=== PATIENT | female | born 1930 | race Caucasian/White ===

== ENCOUNTER 2016-07-02 10:09 | Inpatient (IN) ==
[2016-07-02] MEDS ORDERED: ALBUTEROL NEB INH ONE (11:11)
[2016-07-02 11:56] LABS: EOS# 0.01 X1000 (0.0-0.7); HEMOGLOBIN 12.1 g/dL (12.0-16.0); IMM GRAN% 0.5 % (0.0-0.5); LYMPH# 0.84 X1000 (1.2-3.4); MANUAL DIFF NEEDED? YES; MCH 30.7 PG (27-31); MCHC 34.6 g/dL (33-37); MCV 88.8 FL (81-99); MONO% 9.1 % (1.7-9.3); MPV 8.7 FL (7.4-10.4); NEUT% 86.4 % (42.2-75.2); PLT 535 X1000 (130-400); RBC 3.94 XMIL (4.2-5.4)
[2016-07-02 12:10] LABS: BANDS 4 % (0-1); LYMPHS 2 % (21-51); MONO 8 % (1-9)
[2016-07-02 12:11] LABS: LARGE PLATELETS 1+
[2016-07-02 12:26] LABS: ALBUMIN 3.2 g/dL (3.5-5.0); CALCIUM 8.6 mg/dL (8.8-10.2); POTASSIUM 3.7 mmol/L (3.5-5.1); TOTAL BILIRUBIN 0.68 mg/dL (0.20-1.00); TOTAL PROTEIN 6.4 g/dL (6.3-8.3)
[2016-07-02] MEDS: NS 1,000 ML IV SCH (12:30)
--- NOTE | 2016-07-02 13:30 | Diag Imaging Result Document ---
PROCEDURE NAME: CHEST-2 VIEWS - 07/02/2016 PA AND LATERAL RADIOGRAPH OF THE CHEST: COMPARISON: 06/19/2016. FINDINGS: There is focal ground-glass opacity in the left lower lobe at the base suggesting atelectasis and/or infiltrate. There may also be a small effusion. The right lung is clear. Cardiac silhouette and central vasculature are unremarkable. IMPRESSION: Development of a vague infiltrate and/or atelectasis at the left lung base and a possible small effusion. Follow-up radiograph is recommended.
[2016-07-02] MEDS: LEVAQUIN 500 MG/D5W 500 MG/100 ML IVPB IV SCH (17:16)
[2016-07-02] MEDS: LOVENOX SUBQ SCH (21:38)
[2016-07-02] MEDS: ROZEREM PO SCH (21:39)
[2016-07-02] MEDS: ROBITUSSIN-DM PO PRN (22:59)
[2016-07-03] MEDS: NS 1,000 ML IV SCH ×2 (01:10→11:54)
[2016-07-03] MEDS: ROBITUSSIN-DM PO PRN ×3 (01:30→18:31)
[2016-07-03 01:56] LABS: URINE MICRO REVIEW NEEDED? NO; URINE SOURCE CLEAN CATCH
[2016-07-03 03:02] LABS: BILIRUBIN URINE NEGATIVE (NEGATIVE); BLOOD URINE NEGATIVE (NEGATIVE); COLOR YELLOW; GLUCOSE URINE NEGATIVE (NEGATIVE); LEUKOCYTES URINE MODERATE (NEGATIVE); NITRITE URINE NEGATIVE (NEGATIVE); PH URINE 6.5; PROTEIN URINE TRACE mg/dL (NEGATIVE); SP GRAVITY URINE 1.014; TURBIDITY URINE CLEAR (CLEAR); UR EPITHELIAL CELLS <10 /HPF (<10); URINE BACTERIA NEGATIVE /HPF; URINE CULTURE NEEDED? YES; URINE RBC <10 /HPF (<10); URINE WBC <10 /HPF (<10); UROBILINOGEN URINE NORMAL (NORMAL)
[2016-07-03] MEDS ORDERED: LASIX IV ONE (08:31)
[2016-07-03] MEDS: TENORMIN PO SCH (09:25)
[2016-07-03] MEDS: ASPIRIN EC PO SCH (09:25)
[2016-07-03] MEDS: ALBUTEROL NEB INH SCH ×3 (11:37→20:50)
[2016-07-03] MEDS: LEVAQUIN 500 MG/D5W 500 MG/100 ML IVPB IV SCH (16:04)
[2016-07-03] MEDS: LOVENOX SUBQ SCH (21:06)
[2016-07-03] MEDS: ROZEREM PO SCH (21:06)
[2016-07-04 05:43] LABS: MANUAL DIFF NEEDED? NO
[2016-07-04 05:50] LABS: BASO% 0.1 % (0.0-0.8); EOS# 0.09 X1000 (0.0-0.7); EOS% 0.5 % (0.0-10.0); HEMATOCRIT 28.9 % (37.0-47.0); IMM GRAN# 0.08 X1000 (0.0-0.04); IMM GRAN% 0.5 % (0.0-0.5); LYMPH# 1.46 X1000 (1.2-3.4); LYMPH% 8.9 % (20.5-51.1); MCH 31.1 PG (27-31); MCHC 34.6 g/dL (33-37); MCV 89.8 FL (81-99); MPV 8.5 FL (7.4-10.4); PLT 426 X1000 (130-400); RBC 3.22 XMIL (4.2-5.4)
[2016-07-04 06:04] LABS: AGAP 11; BUN 14 mg/dL (8-22); CHLORIDE 95 mmol/L (98-107); COSMO 263; POTASSIUM 3.5 mmol/L (3.5-5.1); SODIUM 131 mmol/L (136-145); TCO2 25 mmol/L (25-35)
[2016-07-04] MEDS: ASPIRIN EC PO SCH (09:24)
[2016-07-04] MEDS: TENORMIN PO SCH (09:24)
[2016-07-04] MEDS: TUSSIONEX LIQUID PO SCH ×2 (09:24→20:09)
[2016-07-04] MEDS: ALBUTEROL NEB INH SCH ×3 (09:53→19:42)
[2016-07-04] MEDS: TESSALON PO PRN ×2 (12:18→19:07)
[2016-07-04] MEDS: LEVAQUIN PO SCH (17:07)
[2016-07-04] MEDS: LOVENOX SUBQ SCH (20:09)
[2016-07-04] MEDS: ROZEREM PO SCH (20:09)
[2016-07-05] MEDS: ALBUTEROL NEB INH SCH ×2 (07:53→15:33)
[2016-07-05] MEDS: ASPIRIN EC PO SCH (10:30)
[2016-07-05] MEDS: TENORMIN PO SCH (10:30)
[2016-07-05] MEDS: TUSSIONEX LIQUID PO SCH ×2 (10:30→23:34)
[2016-07-05] MEDS ORDERED: MILK OF MAGNESIA PO ONE (10:31)
[2016-07-05] MEDS: LEVAQUIN PO SCH (16:26)
[2016-07-05] MEDS ORDERED: ULTRAM PO PRN (20:50)
[2016-07-05] MEDS ORDERED: TYLENOL PO PRN (20:51)
[2016-07-05] MEDS: TESSALON PO PRN (21:59)
[2016-07-05] MEDS: ROZEREM PO SCH (21:59)
[2016-07-05] MEDS: LOVENOX SUBQ SCH (22:01)
[2016-07-06] MEDS ORDERED: TYLENOL PO PRN (04:45)
[2016-07-06] MEDS ORDERED: ULTRAM PO PRN (04:46)
[2016-07-06 06:20] LABS: MANUAL DIFF NEEDED? NO
[2016-07-06 06:52] LABS: CALCIUM 8.7 mg/dL (8.8-10.2); POTASSIUM 4.2 mmol/L (3.5-5.1)
[2016-07-06 06:53] LABS: BASO% 0.3 % (0.0-0.8); EOS# 0.09 X1000 (0.0-0.7); EOS% 0.8 % (0.0-10.0); HEMATOCRIT 31.4 % (37.0-47.0); HEMOGLOBIN 10.8 g/dL (12.0-16.0); IMM GRAN# 0.15 X1000 (0.0-0.04); IMM GRAN% 1.3 % (0.0-0.5); LYMPH# 1.47 X1000 (1.2-3.4); LYMPH% 12.4 % (20.5-51.1); MCH 30.6 PG (27-31); MCHC 34.4 g/dL (33-37); MONO# 1.76 X1000 (0.11-0.59); MONO% 14.9 % (1.7-9.3); MPV 8.7 FL (7.4-10.4); NEUT% 70.3 % (42.2-75.2); PLT 463 X1000 (130-400); RBC 3.53 XMIL (4.2-5.4)
[2016-07-06] MEDS ORDERED: TUSSIONEX LIQUID PO PRN (09:59)
[2016-07-06] MEDS: ASPIRIN EC PO SCH (10:47)
[2016-07-06] MEDS: TENORMIN PO SCH (10:47)
[2016-07-06] MEDS: TESSALON PO PRN ×2 (10:50→21:01)
--- NOTE | 2016-07-06 11:08 | Diag Imaging Result Document ---
PROCEDURE NAME: CHEST-2 VIEWS - 07/06/2016 SEATED AP AND LATERAL RADIOGRAPH OF THE CHEST: COMPARISON: 07/02/2016. FINDINGS: The small left pleural effusion seen on the previous study has increased in size. It is still fairly small, however. Adjacent atelectasis and/or infiltrate at the left lung base appears more pronounced. Cardiac silhouette is stable. IMPRESSION: Increasing small effusion with adjacent atelectasis and/or infiltrate at the left lung base as described.
--- NOTE | 2016-07-06 11:12 | PROGRESS NOTE ---
DATE: 07/06/2016 SUBJECTIVE: Patient's chart was reviewed. In summary, patient was admitted on 07/02/2016 with increasing cough, congestion, and progressive weight loss. Chest x-ray confirmed development of a vague infiltrate and/or atelectasis at the left lung base and a possible small effusion. White blood cell count was noted to be elevated. The patient was placed on levofloxacin therapy. Since that time, her condition has very slowly improved. Over the course of the last 24 hours, patient has remained very weak. Yesterday, patient's granddaughter noted increasing somnolence. There has been no evidence of fevers, chills, nausea, and vomiting. The patient's cough is largely nonproductive and improving. Her p.o. intake is marginal. OBJECTIVE: Vital Signs: T-max 99.4 degrees, heart rate 64-87, respirations 15-20, blood pressure 136-171/57-96. General: Elderly, in no acute distress. Cardiovascular: Regular rate and rhythm. No significant murmurs, rubs, or gallops. Pulmonary: Crackles at the left base. Abdomen: Soft, nontender, nondistended. Positive bowel sounds. Extremities: Moves all extremities well. No significant clubbing, cyanosis, or edema. Dermatologic: Evaluation reveals no evidence of rash. Laboratory Data: White blood cell count 11.82, hemoglobin 10.8, hematocrit 31.4, platelet count 463,000. Sodium 128, potassium 4.2, chloride 89, bicarb 30, BUN 15, creatinine 0.9, glucose 121, calcium 8.7. Chest x-ray report is pending but per my evaluation, this is suggestive of a persistent left lower lobe infiltrate/atelectasis with probable pleural effusion. ASSESSMENT AND PLAN: 1. Left lower lobe pneumonia-the patient is currently being treated with levofloxacin therapy. Clinically, the patient is slowly improving. White blood cell count is trending downward. We will continue her current regimen with the exception of adding incentive spirometry routinely. We will follow this. 2. Left lower lung field atelectasis with possible pleural effusion-we will follow await official report from radiology. At this point, in the setting of hyponatremia, I do not feel aggressive diuresis is appropriate. We will continue to follow this clinically. We will consider whether a CT scan evaluation is appropriate. 3. Hyponatremia-initial sodium was 123. Sodium today is 128. We will remain aware. 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 4. Progressive weight loss-this has been ongoing for several years. This likely is multifactorial. We will treat her acute issues as noted. Once again, we will consider whether CT scan evaluation is appropriate. We will defer this to Dr. Inman. 5. Type 2 diabetes-this is historical. She currently requires no medical intervention. 6. Profound weakness-this is concerning. We will continue to encourage activity. Physical therapy will be continued. We will defer management to Dr. Inman to determine if rehabilitation is appropriate. 7. Disposition-at this point, patient continues to require usp care in a hospital setting. We will plan discharge home once appropriate. cc: MD Vivek Orr MD
[2016-07-06] MEDS: LEVAQUIN PO SCH (16:59)
[2016-07-06] MEDS: ROZEREM PO SCH (21:01)
[2016-07-06] MEDS: LOVENOX SUBQ SCH (21:01)
[2016-07-07] MEDS: TENORMIN PO SCH (09:28)
[2016-07-07] MEDS: ASPIRIN EC PO SCH (09:28)
[2016-07-07] MEDS: LEVAQUIN PO SCH (16:29)
[2016-07-07] MEDS: ROZEREM PO SCH (20:43)
[2016-07-07] MEDS: LOVENOX SUBQ SCH (20:44)
[2016-07-08] MEDS: ASPIRIN EC PO SCH (08:49)
[2016-07-08] MEDS: TENORMIN PO SCH (08:49)
[2016-07-08] MEDS: TESSALON PO PRN (11:44)
[2016-07-08 14:03] VITALS: BP 135/47
--- NOTE | 2016-07-08 14:13 | DISCHARGE SUMMARY ---
ADMISSION DATE: 07/02/2016 DISCHARGE DATE: 07/08/2016 FINAL DIAGNOSES: 1. Left lower lobe pneumonia. 2. 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 3. Weakness with mobility deficit. 4. 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 PRESENT ILLNESS: Ms. Cruz is an 86-year-old woman who was brought to my office by her son with complaints of increased coughing for approximately a week, also severe weakness. She had been spending most of her time in bed or in a recliner for several days prior to admission. PAST MEDICAL HISTORY: Remarkable for longstanding hypertension, type 2 diabetes mellitus, and cervical spine arthritis. PHYSICAL EXAMINATION: Vital Signs: She is afebrile with blood pressure 136/66. Weight was 121 pounds. Pulse oximetry 94% saturation on room air. General Appearance: A slender, elderly woman with moderate temporal wasting, but she was in no distress and alert. Neck: Supple, with no JVD or adenopathy. Lungs: Clear, with symmetric breath sounds. Cardiovascular examination: Unremarkable. Abdomen: Soft and nontender. HOSPITAL COURSE: She was admitted to the medical floor, where chest x-ray documented a left basilar infiltrate with probable slight pleural effusion. Her hydrochlorothiazide-containing antihypertensive was changed to lisinopril alone, without hydrochlorothiazide. She was treated with intravenous normal saline for hyponatremia, which improved significantly. her white blood count was elevated on admission at 20,800 and progressively decreased to below 12,000. She improved clinically, but remained quite weak, and her family and I both felt she would benefit from subacute rehabilitation. Her appetite here in the hospital was fair and seemed to improve. She continued to have intermittent episodes of coughing, but the breathing treatments did not seem to really help and these were discontinued. Thyroid function tests were essentially normal. She was seen by Speech Therapy and felt to have safe swallowing, although they advised that she is sitting up erect in a chair with her feet on the floor for all oral intake, including solids, liquids, and medications. DISPOSITION: She was discharged to [facility] in improved condition. DISCHARGE MEDICATIONS: Aspirin 81 mg daily, acetaminophen 650 mg q.6 hours p.r.n. for pain or fever, levofloxacin 500 mg daily for 3 additional days, Rozerem 8 mg at bedtime for sleep and to prevent delirium, atenolol 25 mg daily for hypertension, timolol eyedrops 1 drop in the right eye daily for glaucoma, Latanoprost 1 drop in the right eye at bedtime for glaucoma, prednisone 10 mg q.a.m., Tessalon 100 mg 4 times a day p.r.n. for cough. I will continue to follow her at [facility]. cc: Vivek Inman MD
[2016-07-08] MEDS: LEVAQUIN PO SCH (15:27)
== END 2016-07-08 15:34 ==
LOC: DIRADM 10:09 → 4N 10:48
PROVIDERS: ADMIT Internal Medicine; ATTEND Internal Medicine